=== PATIENT | male | born 1970 | race Caucasian/White ===

== ENCOUNTER 2017-09-11 10:53 | Emergency (ER) | payer OTHER ==
[~2017-09-11 10:53] MED LIST: GABAPENTIN300 M2 PO
== END 2017-09-11 11:40 | disposition admitted as inpatient to this hospital (09) ==
LOC: ERH 10:53
DX: R22.31 Localized swelling, mass and lump, right upper limb (principal)

== ENCOUNTER 2017-12-11 08:50 | Emergency (ER) | payer OTHER ==
[2017-12-11 09:02] VITALS: BP 145/87
[2017-12-11 10:22] LABS: ABSOLUTE BASOPHIL COUNT 0.1 /CUMM (0.0-0.2); ABSOLUTE EOSINOPHIL COUNT 0.1 /CUMM (0.0-0.7); ABSOLUTE GRANULOCYTE CT 5.8 /CUMM (1.4-6.5); ABSOLUTE LYMPH COUNT 2.5 /CUMM (1.2-3.4); ABSOLUTE MONOCYTE COUNT 1.1 /CUMM (0.10-0.60); BASOPHIL % 0.9 % (0.0-2.0); GRANULOCYTE % 60.8 % (42.2-75.2); HEMATOCRIT 38.8 % (42-52); MEAN CORPUSCULAR HGB 34.2 PG (27.0-31.0); MEAN CORPUSCULAR HGB CONC 33.2 G/DL (33.0-37.0); MEAN PLATELET VOLUME 7.8 FL (7.4-10.4); PLATELET COUNT 360 /CUMM (130-400); RBC DISTRIBUTION WIDTH 19.4 % (11.5-14.5); RED BLOOD CELL CT 3.77 /CUMM (4.70-6.10); WHITE BLOOD CELL COUNT 9.6 /CUMM (4.8-10.8)
--- NOTE | 2017-12-11 10:24 | ED GENERAL ADULT ---
History of Present Illness General Chief Complaint: Abdominal Pain/Flank Pain Stated Complaint: LEFT SIDE PAIN X2 WEEKS Source: patient Exam Limitations: no limitations Vital Signs & Intake/Output Vital Signs & Intake/Output Vital Signs Date Time Temp Pulse Resp B/P B/P Pulse O2 O2 Flow FiO2 Mean Ox Delivery Rate 12/11 0902 96.9 97 20 145/87 96 Allergies Coded Allergies: cephalexin (From KEFLEX) (HIVES, DYSPNEA 02/03/17) fentanyl ("BAD REACTION" 12/11/17) Reconcile Medications Albuterol Sulfate (Proair Hfa) 90 MCG HFA.AER.AD 2 PUF INH Q4-6 PRN PRN cough/ wheezing Azithromycin 250 MG TABLET 1 DP PO AD BRONCHITIS 2 the first day followed by 1 for days 2-5 Codeine Phosphate/Guaifenesi (Cheratussin AC Syrup) 10 MG-100 MG/5 ML LIQUID 10 ML PO Q6H PRN PAIN/COUGH Gabapentin 300 MG CAPSULE 1 CAP PO TID NERVE PAIN (Reported) Prednisone 50 MG TABLET 1 TAB PO DAILY BRONCHITIS Triage Note: PER PT PAIN TO L SIDE WHEN COUGHING X 3 WEEKS FEELS LIKE BREATHING IS RESTRICTED DENIES NAUSEA BUT WILL VOMIT WITH COUGHING FIT Triage Nurses Notes Reviewed? yes Onset: Abrupt Duration: week(s): (1-2), constant, continues in ED Timing: single episode today Injury Environment: home Severity: mild, moderate Severity Numbers: 6 No Modifying Factors: none HPI: 47-year-old male history of brain cancer presents for evaluation of cough shortness of breath and left rib pain. Patient reports he has been coughing for 1-2 weeks has been getting worse. The cough is mostly dry but occasionally is productive of yellow sputum. He is a current every day smoker. He has never been diagnosed with COPD or asthma but does have an inhaler that he uses occasionally. He reports that the pain in his left ribs is worse with coughing. It resolves at rest. He denies chest pain hemoptysis lower extremity edema. He has no history of heart disease. No nausea vomiting diarrhea abdominal pain. (Ifeanyi Hansen) Past History Travel History Traveled to [place] past 21 day No Medical History Any Pertinent Medical History? see below for history Neurological: BRAIN CANCER EENT: NONE Cardiovascular: NONE Respiratory: NONE Gastrointestinal: NONE Hepatic: NONE Renal: NONE Musculoskeletal: NONE Psychiatric: NONE Endocrine: NONE Tetanus Vaccine: 02/03/17 Surgical History Surgical History: none Psychosocial History Who do you live with Mother Services at Home Nursing What is your primary language Pashto Tobacco Use: Current Daily Use Daily Tobacco Use Amount/Type: => 5 Cigarettes daily Family History Hx Contributory? No (Ifeanyi Hansen) Review of Systems Review of Systems Constitutional: Reports: no symptoms. EENTM: Reports: no symptoms. Respiratory: Reports: see HPI, cough, short of breath, sputum production, wheezing. Cardiovascular: Reports: no symptoms. GI: Reports: no symptoms. Genitourinary: Reports: no symptoms. Musculoskeletal: Reports: no symptoms. Skin: Reports: no symptoms. Neurological/Psychological: Reports: no symptoms. Hematologic/Endocrine: Reports: no symptoms. Immunologic/Allergic: Reports: no symptoms. All Other Systems: Reviewed and Negative (Ifeanyi Hansen) Physical Exam Physical Exam General Appearance: well developed/nourished, no apparent distress, alert, awake Head: atraumatic, normal appearance Eyes: Bilateral: normal appearance, PERRL, EOMI. Ears, Nose, Throat: normal pharynx, normal ENT inspection, hearing grossly normal Neck: normal inspection, supple, full range of motion Respiratory: no respiratory distress, wheezing (MILD END EXPIRATORY), CHEST WALL TENDERNESS OVER THE LEFT LATERAL RIBS NO BRUISING SWELLING AND ABRASIONS Cardiovascular: regular rate/rhythm, normal peripheral pulses Peripheral Pulses: 2+ radial (R), 2+ radial (L) Gastrointestinal: soft, non-tender Back: normal inspection, normal range of motion, no vertebral tenderness Extremities: normal inspection, normal range of motion, no edema Neurologic/Psych: no motor/sensory deficits, awake, alert, oriented x 3, normal gait Skin: intact, normal color, warm/dry Lymphatic: no anterior cervical jona Core Measures ACS in differential dx? No CVA/TIA Diagnosis: No Sepsis Present: No Sepsis Focused Exam Completed? No (Ifeanyi Hansen) Progress Differential Diagnoses I considered the following diagnoses in my evaluation of the patient: [Acute bronchitis, pneumonia, PE, acute coronary syndrome, rib fracture, muscle strain, COPD, CHF] Plan of Care: Orders Procedure Date/time Status TROPONIN LEVEL 12/11 1005 Complete D-DIMER 12/11 0952 Complete EKG 12/11 0952 Active URINALYSIS 12/11 09 Complete LIPASE 12/11 09 Complete COMPREHENSIVE METABOLIC PANEL 12/12 911 Complete CBC WITHOUT DIFFERENTIAL 12/12 911 Complete Laboratory Tests 12/11/17 1022: Urinalysis LIGHT H, Urine Color YEL, Urine Clarity HAZY H, Urine pH 6.0, Ur Specific [place] >= 1.030, Urine Protein TRACE H, Urine Ketones NEG, Urine Nitrite NEG, Urine Bilirubin NEG, Urine Urobilinogen 0.2, Ur Leukocyte Esterase NEG, Ur Microscopic SEDIMENT EXAMINED, Urine WBC 1-3 H, Ur Epithelial Cells RARE, Urine Bacteria FEW H, Granular Casts 1-3 H, Urine Mucus MANY H, Urine Hemoglobin NEG, Urine Glucose NEG 12/11/17 1005: Anion Gap 12, Estimated GFR > 60, BUN/Creatinine Ratio 15.7, Glucose 109 H, Calcium 9.2, Total Bilirubin 0.6, AST 22, ALT 33, Alkaline Phosphatase 76, Troponin I < 0.01, Total Protein 6.9, Albumin 4.3, Globulin 2.6, Albumin/ Globulin Ratio 1.7, Lipase 216, D-Dimer High Sensitivty < 200, CBC w Diff NO MAN DIFF REQ, RBC 3.77 L, MCV 103.0 H, MCH 34.2 H, MCHC 33.2, RDW 19.4 H, MPV 7.8, Gran % 60.8, Lymphocytes % 25.7, Monocytes % 11.6 H, Eosinophils % 1.0, Basophils % 0.9, Absolute Granulocytes 5.8, Absolute Lymphocytes 2.5, Absolute Monocytes 1.1 H, Absolute Eosinophils 0.1, Absolute Basophils 0.1 12/11/17 0952: Troponin I Cancelled Patient is here with cough and rib pain and shortness of breath. He is a current every day smoker. He reports that the rib pain resolves at rest. He has no hemoptysis or lower extremity edema. He does have a history of malignancy. Labs EKG ordered chest x-ray ordered patient medicated with Robitussin-AC. Blood work is not showing any acute findings. D-dimer troponin are negative. Chest x-ray is clear EKG is negative. Patient is feeling much better after Robitussin-AC. His repeat is reproducible with palpation and cough. He has no chest pain otherwise. He has no significant cardiac history. He has wheezing on exam. Patient be treated with Zithromax prednisone pro-air inhaler and Cheratussin. Advised him to quit smoking. Follow-up with a primary care doctor and pulmonology. Discussed return precautions patient agrees the plan Diagnostic Imaging: Viewed by Me: Radiology Read. Discussed w/RAD: Radiology Read. CXR Impression: PATIENT: RADHA DANIEL JR PRESENT AGE : 47 PATIENT ACCOUNT NO: [id number] : 68 LOCATION: [facility] ORDERING PHYSICIAN: Ifeanyi FAROOQ SERVICE DATE: 12/11/17 EXAM TYPE: RAD - XRY- CHEST XRAY, TWO VIEWS EXAMINATION: XR CHEST CLINICAL INFORMATION: Cough. Left- sided chest/rib pain. Shortness of breath. COMPARISON: None TECHNIQUE: 2 views of the chest were obtained. FINDINGS: The lungs are well-inflated and clear. Trachea is midline in position. No evidence of interstitial disease, focal consolidation, mass, pneumothorax or pleural effusion. The cardiomediastinal silhouette and pulmonary belle have normal size and contour. The visualized bones of the chest are intact. Thoracic vertebra have normal height and alignment. Mild discovertebral degenerative changes of the thoracic spine. Left-sided ribs are unremarkable. The examined upper abdomen is unremarkable. IMPRESSION: No acute pulmonary disease. DICTATED BY: Matt Serrano MD DATE/TIME DICTATED:09/25 H[employer] HOUSE SUPERVISOR:GERDA DATE/TIME TRANSCRIBED:12/11/171040 CONFIDENTIAL, DO NOT COPY WITHOUT APPROPRIATE AUTHORIZATION. <Electronically signed in Other Vendor System> SIGNED BY: Matt Serrano MD 12/11/171045 Initial ED EKG: normal sinus rhythm, no ST T wave changes, PVC (Ifeanyi Hansen) Departure Departure Disposition: HOME OR SELF CARE Condition: Stable Clinical Impression Primary Impression: Acute bronchitis Qualifiers: Bronchitis organism: unspecified organism Qualified Code: J20.9 - Acute bronchitis, unspecified Referrals: Nadia Prince MD (PCP/Family) Robert Montana MD Additional Instructions: Rest and drink plenty of fluids. Take antibiotics and steroids as directed for the full course. Continue albuterol inhaler 2 puffs every 4-6 hours as needed. Cheratussin as needed for cough and pain. You can also use Tylenol or ibuprofen for pain. Quit smoking. Follow-up with YOUr primary care doctor and provided activities volunteer. Monitor symptoms and return with any concerns. Departure Forms: Customer Survey General Discharge Information Prescriptions: Current Visit Scripts Codeine Phosphate/Guaifenesi (Cheratussin AC Syrup) 10 ML PO Q6H PRN PAIN/COUGH #240 ML Azithromycin 1 DP PO AD #6 TAB 2 the first day followed by 1 for days 2-5 Prednisone 1 TAB PO DAILY #5 TAB Albuterol Sulfate (Proair Hfa) 2 PUF INH Q4-6 PRN PRN cough/wheezing #1 INHAL (Ifeanyi Hansen) PA/OPERATIONS ASST Co-Sign Statement Statement: ED Attending supervision documentation- [] I saw and evaluated the patient. I have also reviewed all the pertinent lab results and diagnostic results. I agree with the findings and the plan of care as documented in the PA's/OPERATIONS ASST's documentation. [X] I have reviewed the ED Record and agree with the PA's/OPERATIONS ASST's documentation. [] Additions or exceptions (if any) to the PAs/OPERATIONS ASST's note and plan are summarized below: [] (Kirstin CLAROS,Andres Farooq) Critical Care Note Critical Care Note Critical Care Time: non-applicable (Ifeanyi Hansen)
--- NOTE | 2017-12-11 10:46 | RADIOLOGY REPORT ---
EXAMINATION: XR CHEST CLINICAL INFORMATION: Cough. Left-sided chest/rib pain. Shortness of breath. COMPARISON: None TECHNIQUE: 2 views of the chest were obtained. FINDINGS: The lungs are well-inflated and clear. Trachea is midline in position. No evidence of interstitial disease, focal consolidation, mass, pneumothorax or pleural effusion. The cardiomediastinal silhouette and pulmonary belle have normal size and contour. The visualized bones of the chest are intact. Thoracic vertebra have normal height and alignment. Mild discovertebral degenerative changes of the thoracic spine. Left-sided ribs are unremarkable. The examined upper abdomen is unremarkable. IMPRESSION: No acute pulmonary disease.
[2017-12-11] MEDS ORDERED: CHERATUSSIN AC118 M1 PO (11:06)
[2017-12-11] MEDS ORDERED: AZITHROMYCIN250 M1 PO (11:06)
[2017-12-11] MEDS ORDERED: PREDNISONE50 M1 PO (11:06)
[2017-12-11] MEDS ORDERED: PROAIR HFA8.5 GM INH (11:11)
== END 2017-12-11 11:12 ==
LOC: ERH 08:50
PROVIDERS: Physician Assistant Medical
DX: J20.9 Acute bronchitis, unspecified (principal); F17.210 Nicotine dependence, cigarettes, uncomplicated
CPT/HCPCS: 71046; 81001; 93005; 93010